=== PATIENT | female | born 1925 | race Caucasian/White ===

== ENCOUNTER → 2016-07-17 | Outpatient (CLI) | payer MEDICARE ==
[~2016-07-17] VITALS: Ht 160 cm; Wt 58.5 kg
[~2016-07-17] MED LIST: AC325T PO; ALBU8.5H2 IH; AML5T; AMLO10TA82 PO; ASP81TEC PO; ATOR10TA PO; Albuterol Inhaler; BUDE6HFA IH; BUPIVACAINE 0.25% 30 ML (SENSORCAINE) VIAL ONE; CPR500T; CYCL10TA9 PO; DCS100C PO; DICL100G20 TP; DOCU100T7 PO; DULO30CA; DULO60CA6 PO; EZET10TA5; FLUT16SP22 NS; Flaxseed Oil; LORTAB; Leflunomide; METO50TA7 PO; MTP25TSR PO; MTR500T; NAPR220T76; OMEP-10; SODI88SP5 NS; TIOT18CA IH; TRAM-21; TRAM100T2 PO; TRAZ50TA67 PO; TRIA1TAB2 PO; TRIAMCINOLONE ACET (KENALOG-40) 40 MG/ML 1 ML VIAL ONE; TRM50T PO; [UNRECOGNIZED DRUG - OTHER]
[2016-07-17 13:54] VITALS: BP 135/75
[2016-07-17 14:16] VITALS: BP 144/78
--- NOTE | 2016-07-17 14:26 | Pain Medicine-Procedure ---
Procedure Pre-Op/Post-Op Diagnosis Diagnosis: disc disorder with radiculopathy, lumbar Indications for Operation Low back pain Attending Surgeon Esau Procedure Date of Service: July 17, 2016 Procedure: Lumbar Epidural Steroid Injection at the L5-S1 level under Fluoroscopic Guidance Procedure: Patient was identified in the holding area. After risks, benefits, and alternatives were discussed with the patient, informed consent was obtained. Patient was brought to the fluoroscopy suite and placed prone on the procedure room table. A time out was performed. Vital signs were monitored throughout the procedure. The patients low back was prepped and draped in the usual sterile fashion. The patients skin was anesthetized using 2% Lidocaine. A Tuohy needle was inserted and advanced to the L5-S1 epidural space under fluoroscopic guidance using the loss of resistance technique and intermittent projection of fluoroscopy. There was no paresthesia with needle placement. The needle position was confirmed in both the AP and lateral view. After negative aspiration 2ml of contrast was injected under live fluoroscopy which showed good spread of the contrast in the epidural space at the appropriate level, there was no intravascular or subarachnoid spread. Again, after negative aspiration for heme or CSF, 2 ml of 0.25% Bupivicaine, 2ml of preservative free normal saline, and 80mg of Kenalog was injected. The needle was removed and a sterile bandage was placed and the patient was transferred to the recovery area in stable condition. After a brief period of observation, patient was discharged to home with no new neurological deficits and no apparent complications. Complications None MYLES DE LA VEGA MD July 17, 2016 2:26 pm
== END ==
LOC: CARD 13:35
PROVIDERS: ATTEND Pain Medicine Pain Medicine
DX: M51.16 Intervertebral disc disorders with radiculopathy, lumbar region (principal)
CPT/HCPCS: 62323